=== PATIENT | male | born 1985 | race African-American/Black ===

== ENCOUNTER 2017-01-05 21:25 | Emergency (ER) | payer SELFPAY ==
[2017-01-05 21:44] VITALS: BP 156/81; PULSE 94; TEMP 102.1; BMI 30.8
[2017-01-05] MEDS ORDERED: IBUPROFEN 400 MG TABLET (FP) PO ONE ×2 (21:47→21:50)
--- NOTE | 2017-01-05 21:55 | PDOC ---
History of Present Illness - General Chief Complaint: Cold Symptoms Stated Complaint: FEVER, FATIGUE Time Seen by Provider: 01/05/17 21:47 History Source: Patient Exam Limitations: No Limitations - History of Present Illness Initial Comments: 01/05/17 21:52 31 yr male no medial history with c/o fever for 2 days cough sore throat. no abd pain neg nvd neg urinary complaints. neg neck pain . Pt denies recent travel no sick contacts. Past History - Past Medical History Allergies/Adverse Reactions: Allergies Allergy/AdvReac Type Severity Reaction Status Date / Time No Known Allergies Allergy Verified 01/05/17 21:41 Home Medications: Ambulatory Orders Guaifenesin [Mucinex] 600 mg PO BID PRN #10 tab.er.12h 01/05/17 Ibuprofen 800 mg PO TID PRN #21 tablet 01/05/17 Other medical history: Pt denies - Immunization History Td Vaccination: Yes Immunization Up to Date: Yes - Psycho/Social/Smoking Cessation Hx Anxiety: No Suicidal Ideation: No Smoking Status: Yes Smoking History: Current some day smoker Number of Cigarettes Smoked Daily: 10 Information on smoking cessation initiated: No 'Breaking Loose' booklet given: 06/12/13 Hx Alcohol Use: No Drug/Substance Use Hx: No Substance Use Type: None Hx Substance Use Treatment: No Respiratory Specific PMHX - Complaint Specific PMHX Angina: No Bronchitis: No Pneumonia: No Pulmonary Embolus: No TB (Tuberculosis): No Review of Systems - Review of Systems Able to Perform ROS?: Yes Is the patient limited Andorran proficient: No Constitutional: Yes: Symptoms Reported, Fever HEENTM: Yes: Symptoms Reported, See HPI, Throat Pain Respiratory: Yes: Cough *Physical Exam - Vital Signs Last Vital Signs Temp Pulse Resp BP Pulse Ox 102.1 F H 94 H 20 156/81 99 01/05/17 21:42 01/05/17 21:42 01/05/17 21:42 01/05/17 21:42 01/05/17 21:42 - Physical Exam General Appearance: Yes: Nourished, Appropriately Dressed HEENT: positive: EOMI, CECE, Normal Voice, Muffled/Hoarse voice (slighlty muffled voice ) Neck: positive: Supple, Other (FROM no pain or tenderness). negative: Tender, Rigid, Rigidity, Tender lateral, Tender midline Respiratory/Chest: positive: Lungs Clear, Normal Breath Sounds. negative: Chest Tender Cardiovascular: positive: Regular Rhythm, Regular Rate Gastrointestinal/Abdominal: positive: Normal Bowel Sounds, Soft Musculoskeletal: positive: Normal Inspection Extremity: positive: Normal Capillary Refill, Normal Inspection, Normal Range of Motion Integumentary: positive: Normal Color, Dry, Warm Neurologic: positive: jacquard fixer II-XII NML intact, Fully Oriented, Alert, Normal Mood/ Affect Medical Decision Making - Medical Decision Making 01/05/17 21:54 cc: fever 2 days sore theroat cough non toxic neg neck pain , pt has sinus congestion, tender to sinuses will give ibuprofen 800mg now check for strep 01/05/17 22:20 *DC/Admit/Observation/Transfer Diagnosis at time of Disposition: Upper respiratory tract infection Qualifiers: URI type: unspecified URI Qualified Code(s): J06.9 - Acute upper respiratory infection, unspecified - Discharge Dispostion Disposition: HOME Condition at time of disposition: Good - Prescriptions Prescriptions: Ibuprofen 800 mg PO TID PRN #21 tablet PRN Reason: Fever Or Pain Guaifenesin [Mucinex] 600 mg PO BID PRN #10 tab.er.12h PRN Reason: Cough - Patient Instructions Printed Discharge Instructions: DI for Viral Upper Respiratory Infection -- Adult Additional Instructions: drink pleanty of fluids tea with honey and lemon take ibuprofen 800mg every 6hrs for fever or pain as needed take mucinex for cough and mucous production (prescription sent to pharmacy return to ER for any worsening symptoms
== END 2017-01-05 22:26 | disposition home or self-care (01) ==
LOC: JERFT 21:25
DX: J06.9 Acute upper respiratory infection, unspecified (principal); F17.210 Nicotine dependence, cigarettes, uncomplicated
CPT/HCPCS: 87070; 87077; 87430; 99281-25

== ENCOUNTER 2017-10-15 01:40 | Emergency (ER) | payer SELFPAY ==
[2017-10-15 02:30] VITALS: BP 133/77; PULSE 64; TEMP 97.7; BMI 29.3
--- NOTE | 2017-10-15 03:22 | PDOC ---
History of Present Illness - General Chief Complaint: Toothache Stated Complaint: TOOTHACHE - History of Present Illness Initial Comments: Patient is a 32 year old male, with no pmh, who presents to the emergency department complaining of L sided tooth and jaw pain beginning around 3PM yesterday. Pt noted pain in early afternoon yesterday, primarily in L lower jaw. States that pain has been constant, sharp with mild radiation to upper neck. Pt denies any bleeding, purulent drainage, dysphagia, swelling or rash in the area. Pt with no recent dental procedures or trauma to oropharynx or jaw. Pt has not seen his general dentist in multiple years. No prior hx of dental abscesses. No sick contacts, recent travel or diet changes. patient denies chest pain, shortness of breath, headache or dizziness. Denies fever, chills, nausea, vomiting, diarrhea and constipation. Denies dysuria, frequency, urgency and hematuria. Allergies: None Past surgical history: None Social History: Current smoker, 1/2 ppd; denies alcohol, drug use PMD: Dr. Jake Marks 10/15/17 03:08 Past History - Past Medical History Allergies/Adverse Reactions: Allergies Allergy/AdvReac Type Severity Reaction Status Date / Time No Known Allergies Allergy Verified 01/05/17 21:41 Home Medications: Ambulatory Orders Guaifenesin [Mucinex] 600 mg PO BID PRN #10 tab.er.12h 01/05/17 Ibuprofen 800 mg PO TID PRN #21 tablet 01/05/17 Azithromycin [Zithromax -] 250 mg PO UTDICT #6 tab 01/08/17 Ibuprofen [Motrin -] 600 mg PO Q4H #20 tablet 10/15/17 Penicillin V Potassium [Pen Vee K -] 500 mg PO TID #21 tablet 10/15/17 COPD: No - Immunization History Td Vaccination: Yes Immunization Up to Date: Yes - Suicide/Smoking/Psychosocial Hx Smoking Status: Yes Smoking History: Never smoked Have you smoked in the past 12 months: No Number of Cigarettes Smoked Daily: 10 Information on smoking cessation initiated: No 'Breaking Loose' booklet given: 06/12/13 Hx Alcohol Use: No Drug/Substance Use Hx: No Substance Use Type: None Hx Substance Use Treatment: No Review of Systems - Review of Systems Comments:: GENERAL/CONSTITUTIONAL: No fever or chills. No weakness. HEAD, EYES, EARS, NOSE AND THROAT: + L lower jaw pain. No change in vision. No ear pain or discharge. No sore throat. CARDIOVASCULAR: No chest pain or shortness of breath RESPIRATORY: No cough, wheezing, or hemoptysis. GASTROINTESTINAL: No nausea, vomiting, diarrhea or constipation. GENITOURINARY: No dysuria, frequency, or change in urination. MUSCULOSKELETAL: No joint or muscle swelling or pain. No neck or back pain. SKIN: No rash NEUROLOGIC: No headache, vertigo, loss of consciousness, or change in strength/ sensation. ENDOCRINE: No increased thirst. No abnormal weight change HEMATOLOGIC/LYMPHATIC: No anemia, easy bleeding, or history of blood clots. ALLERGIC/IMMUNOLOGIC: No hives or skin allergy. 10/15/17 03:08 *Physical Exam - Vital Signs Last Vital Signs Temp Pulse Resp BP Pulse Ox 97.7 F 64 18 133/77 95 10/15/17 02:25 10/15/17 02:25 10/15/17 02:25 10/15/17 02:25 10/15/17 02:25 - Physical Exam Comments: GENERAL: Young man, Awake, alert, and fully oriented, in no acute distress HEAD: No signs of trauma, normocephalic, atraumatic EYES: PERRLA, EOMI, sclera anicteric, conjunctiva clear ENT: Mild edema in pretonsilar buccal tissue on L side on oropharynx inspection. No other oropharyngeal lesions, erythema or purulent drainage noted. Auricles normal inspection, hearing grossly normal, nares patent, oropharynx clear without exudates. Moist mucosa NECK: Normal ROM, supple, no lymphadenopathy, JVD, or masses LUNGS: No distress, speaks full sentences, clear to auscultation bilaterally HEART: Regular rate and rhythm, normal S1 and S2, no murmurs, rubs or gallops, peripheral pulses normal and equal bilaterally. ABDOMEN: Soft, nontender, normoactive bowel sounds. No guarding, no rebound. No masses EXTREMITIES : Normal inspection, Normal range of motion, no edema. No clubbing or cyanosis. 10/15/17 03:08 Medical Decision Making - Medical Decision Making Patient is a 32 year old male, with no pmh, who presents to the emergency department complaining of L sided tooth and jaw pain beginning around 3PM yesterday. On exam, pt with no very mild oropharyngeal swelling in L buccal mucosa. Will discharge on 7 day course of Penicillin VK, motrin for pain control and f/u with PMD and general dentist. Pt VSS, pain improved. 10/15/17 03:39 *DC/Admit/Observation/Transfer Diagnosis at time of Disposition: Tooth pain - Discharge Dispostion Disposition: HOME Condition at time of disposition: Good Decision to Admit order: No - Prescriptions Prescriptions: Ibuprofen [Motrin -] 600 mg PO Q4H #20 tablet Penicillin V Potassium [Pen Vee K -] 500 mg PO TID #21 tablet - Referrals Referrals: Jake Marks MD [Staff Physician] - - Patient Instructions Printed Discharge Instructions: DI for Dental Pain Additional Instructions: During your visit to the [facility] ED, you were evaluated for tooth pain. You are being discharged home with outpatient follow-up with your primary care provider and primary dentist. You are being discharged with motrin for pain control and antibiotics. Please take motrin 600mg every four hours if you experience fevers or aches until your symptoms resolve. You are being provided with a prescription for Penicillin VK 500mg. Please take one tablet by mouth every 8 hours. If you experience any of the following symptoms, please return to the ED: - Persistent fevers/chills >3 days - Worsening pain in your mouth or jaw - Worsening swelling, rash or drainage from the site - Any new or concerning symptoms - Post Discharge Activity
[2017-10-15] MEDS ORDERED: IBUPROFEN 600 MG TABLET (FP) PO ONE ×2 (03:29→03:34)
--- NOTE | 2017-10-15 04:15 | PDOC ---
Attending Attestation - HPI HPI: 10/15/17 04:19 The patient is a 32 year old male with no significant past medical history who presents to the ED with toothache since yesterday afternoon. He complains of constant sharp pain in his left lower jaw with radiation to his neck. He denies any recent dental procedures or trauma. He denies any associated fevers or chills. - Medical Decision Making 10/15/17 04:19 Documentation prepared by Mariana Haywood, acting as medical lab technician for Mekhi Mcrae DO. <Mariana Haywood - Last Filed: 10/15/17 04:19> - Resident Resident Name: Prince Khan - ED Attending Attestation I have performed the following: I have examined & evaluated the patient, The case was reviewed & discussed with the resident, I agree w/resident's findings & plan, Exceptions are as noted - Physicial Exam PE: 11/01/17 19:21 Physical Exam General Appearance: Yes: Appropriately Dressed. No: Apparent Distress, Intoxicated HEENT: positive: EOMI, CECE, Normal ENT Inspection, Normal Voice, TMs Normal, Pharynx Normal. negative: Pale Conjunctivae, Photophobia, Scleral Icterus (R), Scleral Icterus (L) Neck: positive: Trachea midline, Normal Thyroid, Supple. negative: Tender, Rigid, Carotid bruit, Stridor, Lymphadenopathy (R), Lymphadenopathy (L), Thyromegaly Respiratory/Chest: positive: Lungs Clear, Normal Breath Sounds. negative: Chest Tender, Respiratory Distress, Accessory Muscle Use, Labored Respiration, RES, Crackles, Rales, Rhonchi, Stridor, Wheezing, Dullness Cardiovascular: positive: Regular Rhythm, Regular Rate, S1, S2. negative: Edema , JVD, Murmur, Bradycardia, Tachycardia Vascular Pulses: Dorsalis-Pedis (R): 2+, Doralis-Pedis (L): 2+ Gastrointestinal/Abdominal: positive: Normal Bowel Sounds, Flat, Soft. negative : Tender, Organomegaly, Pulsatile Mass, Increased Bowel Sounds, Decreased BS, Distended, Guarding, Rebound, Hernia, Hepatomegaly, Spleenomegaly Lymphatic: negative: Adenopathy, Tenderness Musculoskeletal: positive: Normal Inspection. negative: CVA Tenderness, Decreased Range of Motion Extremity: positive: Normal Capillary Refill, Normal Inspection, Normal Range of Motion, Pelvis Stable. negative: Tender, Pedal Edema, Swelling, Erythema Integumentary: positive: Normal Color, Dry, Warm. negative: Cyanotic, Erythema , Jaundice, Rash Neurologic: positive: site leasing agent II-XII NML intact, Fully Oriented, Alert, Normal Mood/ Affect, Motor Strength 5/5. negative: EOM Palsy, Facial Droop, Sensory Deficit <Mekhi Mcrae - Last Filed: 11/01/17 19:21>
== END 2017-10-15 03:54 | disposition home or self-care (01) ==
LOC: JER 01:40
DX: K08.89 Other specified disorders of teeth and supporting structures (principal); F17.210 Nicotine dependence, cigarettes, uncomplicated
CPT/HCPCS: 99281-25

== ENCOUNTER 2018-11-24 02:34 | Emergency (ER) | payer BC, OTHER ==
[2018-11-24 03:23] VITALS: PULSE 82; TEMP 98.3; BMI 30.6
--- NOTE | 2018-11-24 04:30 | PDOC ---
Attending Attestation - Resident Resident Name: Christopher Hartman - ED Attending Attestation I have performed the following: I have examined & evaluated the patient, The case was reviewed & discussed with the resident, I agree w/resident's findings & plan - HPI HPI: 11/24/18 04:59 33-year-old male with blood and pain to the left ear with no recollection of trauma. - Physicial Exam PE: 11/24/18 04:59 agree with resident exam - Medical Decision Making 11/24/18 05:00 33-year-old male with blood and pain to the left ear Exam consistent with a small abrasion in the external canal Plan for localized wound care and DC home
--- NOTE | 2018-11-24 04:45 | PDOC ---
History of Present Illness - General Chief Complaint: Ear Problem Stated Complaint: BLOOD COMMING OUT OF EAR, HEADACHE Time Seen by Provider: 11/24/18 04:28 - History of Present Illness Initial Comments: The pt is a 33M w/ no reported PMH who presents for evaluation of approximately 1 hour of left ear bleeding which has since resolved. He endorses cotton swab usage to clean his ears. He denies any other complaints, pain, or concerns. He has never had this happen before. Denies trauma, fall, fevers/chills, ear pain, recent/recurrent ear infection. 11/24/18 04:34 Past History - Past Medical History Allergies/Adverse Reactions: Allergies Allergy/AdvReac Type Severity Reaction Status Date / Time No Known Allergies Allergy Verified 11/24/18 03:04 Home Medications: Ambulatory Orders NK [No Known Home Medication] 11/24/18 COPD: No - Immunization History Td Vaccination: Yes Immunization Up to Date: Yes - Suicide/Smoking/Psychosocial Hx Smoking Status: Yes Smoking History: Current every day smoker Have you smoked in the past 12 months: Yes Number of Cigarettes Smoked Daily: 10 Information on smoking cessation initiated: No 'Breaking Loose' booklet given: 06/12/13 Hx Alcohol Use: No Drug/Substance Use Hx: No Substance Use Type: None Hx Substance Use Treatment: No Review of Systems - Review of Systems Able to Perform ROS?: Yes Comments:: GENERAL/CONSTITUTIONAL: No fever or chills. No weakness HEAD, EYES, EARS, NOSE AND THROAT: No change in vision. No ear pain or change in hearing. No sore throat CARDIOVASCULAR: No chest pain or shortness of breath RESPIRATORY: Denies cough, hemoptysis GASTROINTESTINAL: No nausea, vomiting, diarrhea or constipation GENITOURINARY: No dysuria, frequency, or change in urination MUSCULOSKELETAL: No joint or muscle swelling or pain. No neck or back pain SKIN: No rash NEUROLOGIC: No headache, vertigo, loss of consciousness, or change in strength/ sensation ENDOCRINE: No increased thirst. No abnormal weight change HEMATOLOGIC/LYMPHATIC: No anemia, easy bleeding, or history of blood clots ALLERGIC/IMMUNOLOGIC: No hives or skin allergy Is the patient limited Grenadian proficient: No *Physical Exam - Vital Signs Last Vital Signs Temp Pulse Resp BP Pulse Ox 98.3 F 82 14 156/106 H 100 11/24/18 03:01 11/24/18 03:01 11/24/18 03:01 11/24/18 03:01 11/24/18 03:01 - Physical Exam Comments: GENERAL: Awake, alert, and oriented to person/place/time, in no acute distress HEAD: No signs of trauma, normocephalic, atraumatic EYES: PERRLA, EOMI, sclera anicteric, conjunctiva clear ENT: Hearing grossly normal, R TM and EAM w/o hemorrhage, inflammation; L TM flat w/o inflammation; L EAM w/ small amount of blood w/o active hemorrhage; nares patent, oropharynx clear without exudates. Moist mucosa LUNGS: No distress, speaks in full sentences, clear to auscultation bilaterally HEART: Regular rate and rhythm, normal S1 and S2, no murmurs appreciated ABDOMEN: Soft, nontender, normoactive bowel sounds. No guarding, no rebound EXTREMITIES: Normal inspection, Normal range of motion, no edema. No clubbing or cyanosis NEUROLOGICAL: Cranial nerves II through XII grossly intact. Normal speech, normal gait, no focal sensorimotor deficits SKIN: Warm, Dry Medical Decision Making - Medical Decision Making The pt is a 33M w/ no reported PMH who presents for evaluation of approximately 1 hour of left ear bleeding which has since resolved. EAM cleaned and remained hemostatic Pt given discharge instruction, cautioned again using cotton swabs for cleaning his ears, return precautions, and follow up Pt in agreement and verbalized understanding Dispo: home *DC/Admit/Observation/Transfer Diagnosis at time of Disposition: Bleeding from left ear - Discharge Dispostion Disposition: HOME Condition at time of disposition: Stable Decision to Admit order: No - Referrals Referrals: [facility] [place] [facility] [place] [Provider Group] - Patient Instructions Printed Discharge Instructions: DI for Ear Drainage Additional Instructions: You were seen in the Emergency Department for evaluation of ear bleeding. It was likely due to a scratch in your ear. Review the handout provided at discharge and refrain from using cotton swabs to clean your ears. Follow up with your primary care provider. Return to the Emergency Department if you develop fevers/chills, chest pain, trouble breathing, lightheadedness/dizziness , persistent bleeding, change in hearing, worsening symptoms, or any new/ concerning symptoms. - Post Discharge Activity
[2018-11-24 04:49] VITALS: BP 137/83
== END 2018-11-24 05:05 | disposition home or self-care (01) ==
LOC: JER 02:34
DX: H92.22 Otorrhagia, left ear (principal); F17.210 Nicotine dependence, cigarettes, uncomplicated
CPT/HCPCS: 99281-25

== ENCOUNTER 2019-01-12 22:55 | Emergency (ER) | payer OTHER ==
[2019-01-12 23:05] VITALS: BMI 30.6
--- NOTE | 2019-01-12 23:36 | PDOC ---
History of Present Illness - General Chief Complaint: Hemoptysis Stated Complaint: COUGH/SOB Time Seen by Provider: 01/12/19 23:23 History Source: Patient Exam Limitations: No Limitations - History of Present Illness Initial Comments: Pt is a 33 yo M, with no significant PMH, who is presenting with 1 episode of bloody sputum today. Pt states he has had symptoms of URI (dry nasal congestion , dry cough) x1 week, with fever during the first few days which resolved with OTC advil PM. Pt states he then had productive sputum over the past few days, which seemed to be resolving, however he had 1 episode shortly before presentation in which he noticed a small amount of blood mixed into the sputum, so presented to the ER. Pt denies any fevers/chills, headache, vision changes, syncope, chest pain, palpitations, SOB, nausea/vomiting, abdominal pain, urinary symptoms, diarrhea/constipation, or leg swelling. Allergies: NKDA PCP: Robb Makrs Social: Pt denies any cigarette, alcohol, or drug use. Pt quit smoking cigarettes and THC 6 months ago. Pt denies any recent travel or sick contacts. Surgical: no relevant history. Family: no relevant history. 01/13/19 00:27 Past History - Travel Traveled outside of the country in the last 30 days: No Close contact w/someone who was outside of country & ill: No - Past Medical History Allergies/Adverse Reactions: Allergies Allergy/AdvReac Type Severity Reaction Status Date / Time No Known Allergies Allergy Verified 01/12/19 23:05 Home Medications: Ambulatory Orders NK [No Known Home Medication] 11/24/18 COPD: No - Immunization History Td Vaccination: Yes Immunization Up to Date: Yes - Suicide/Smoking/Psychosocial Hx Smoking Status: Yes Smoking History: Former smoker Have you smoked in the past 12 months: No Number of Cigarettes Smoked Daily: 10 Information on smoking cessation initiated: No 'Breaking Loose' booklet given: 06/12/13 Hx Alcohol Use: No Drug/Substance Use Hx: No Substance Use Type: None Hx Substance Use Treatment: No Review of Systems - Review of Systems Able to Perform ROS?: Yes Is the patient limited Irish proficient: No Constitutional: Yes: Malaise, Weight Stable. No: Chills, Diaphoresis, Fever, Loss of Appetite, Weakness HEENTM: Yes: Nose Congestion. No: Blurred Vision, Double Vision, Nose Bleeding , Throat Pain, Throat Swelling, Difficulty Swallowing Respiratory: Yes: See HPI, Cough, Hemoptysis. No: Orthopnea, Shortness of Breath, Productive cough Cardiac (ROS): No: Chest Pain, Edema, Irregular Heart Rate, Lightheadedness, Palpitations, Syncope, Chest Tightness ABD/GI: No: Constipated, Diarrhea, Nausea, Poor Appetite, Poor Fluid Intake, Vomiting : No: Burning, Dysuria, Frequency, Pain, Urgency Musculoskeletal: No: Back Pain, Joint Pain Integumentary: No: Rash Neurological: No: Headache, Numbness, Paresthesia, Weakness, Unsteady Gait, Dizziness Psychiatric: No: Sleep Pattern Change, Change in Appetite Endocrine: No: Increased Urine, Change in Weight Hematologic/Lymphatic: No: Anemia, Blood Clots, Easy Bleeding, Easy Bruising All Other Systems: Reviewed and Negative *Physical Exam - Vital Signs Last Vital Signs Temp Pulse Resp BP Pulse Ox 98.0 F 74 15 164/90 100 01/12/19 23:01 01/12/19 23:01 01/12/19 23:01 01/12/19 23:01 01/12/19 23:01 - Physical Exam Comments: Vitals stable, pt afebrile. Pt in NAD, overweight body habitus. Pt alert and oriented x3. heat curer generally intact, muscular strength and sensation intact. No midline spinal tenderness, step-offs, or crepitus. Head normocephalic, atraumatic. Eyes PERRLA, EOMI. Oropharynx without erythema or exudates, no LAD b/l. No nasal congestion, hearing intact. Clear heart sounds, S1/S2, no JVD, b/l pedal edema, or heart murmur. Clear lung sounds, no respiratory distress, wheezes, crackles, or accessory muscle use. No abdominal or CVA tenderness to palpation, no rebound, no guarding. Abdomen soft, non-distended, and with normoactive bowel sounds. Skin without jaundice or rash. 01/13/19 00:30 Medical Decision Making - Medical Decision Making Pt was seen at bedside, also will be seen by attending Dr. Harris. Pt presenting with complaints of blood mixed into sputum, after persistent cough over the past week. Likely bronchitis and inflammation 2/2 URI. Will evaluate with chest x-ray for pneumonia, but afebrile and no focal consolidation auscultated on exam. Will continue to reassess pt and monitor for symptomatic improvement. ECG: NSR, intervals WNL (HR 76, AR 152, QRS 88, QTc 396). TWIs in III. No prior ECG for comparison. 01/13/19 00:32 x-ray with no acute pathology or focal infiltrates (read in ER with Dr Harris) Pt safe to discharge home with PCP f/u. 01/13/19 01:24 *DC/Admit/Observation/Transfer Diagnosis at time of Disposition: Hemoptysis, unspecified URI (upper respiratory infection) Qualifiers: URI type: unspecified URI Qualified Code(s): J06.9 - Acute upper respiratory infection, unspecified - Discharge Dispostion Disposition: HOME Condition at time of disposition: Good Decision to Admit order: No - Referrals Referrals: Robb Marks MD [Primary Care Provider] - - Patient Instructions Printed Discharge Instructions: DI for Hemoptysis, DI for Viral Upper Respiratory Infection -- Adult Additional Instructions: You were seen in the ER today for blood in your sputum. The results of your imaging today was normal. Please follow-up with your primary care doctor within 1-2 days to discuss your visit and make sure your symptoms have improved. Please return to the ER if you have any worsening pain, development of fevers or chills, loss of consciousness, inability to tolerate food or fluids, or any other concerns. - Post Discharge Activity
[2019-01-13 00:53] VITALS: BP 137/86; PULSE 62; TEMP 98.2
--- NOTE | 2019-01-13 01:37 | PDOC ---
Documentation entered by Anisa Muñoz SCRIBE, acting as scribe for Sharon Harris MD. Sharon Harris MD: This documentation has been prepared by the scribe, Anisa Muñoz SCRIBE, under my direction and personally reviewed by me in its entirety. I confirm that the documentation accurately reflects all work, treatment, procedures, and medical decision making performed by me. Attending Attestation - Resident Resident Name: MariaaJeannette - HPI HPI: 01/13/19 00:05 The patient is a 33-year-old male with no reported past medical history presents to the emergency department after 2 episodes of hemoptysis. The patient reports hes been having 2 weeks of fever, which resolved in 2 days with Tylenol, congestion, dry cough which progressed into a productive cough. The patient reports enroute to the ER, the patient experienced chest pain, denies chest pain currently. Denies sick contact or recent travel. - Physicial Exam PE: 01/13/19 01:00 GENERAL: Awake, alert, and fully oriented, in no acute distress LUNGS: Breath sounds equal, clear to auscultation bilaterally. No wheezes, and no crackles HEART: Regular rate and rhythm, normal S1 and S2, no murmurs, rubs or gallops NEUROLOGICAL: Cranial nerves II through XII grossly intact. Normal speech, normal gait. - Medical Decision Making 01/13/19 01:36 pt presents to the ED complaining of a single episode of blood streaked sputum that occurred after a prolonged coughing spell. Currently denies complaints. CXR checked to evaluate for PNA and is negative. Will discharge home with instructions to return to the Ed for worsening symptoms.
--- NOTE | 2019-01-17 09:33 | EKG ---
Test Reason : Blood Pressure : / mmHG Vent. Rate : 076 BPM Atrial Rate : 076 BPM P-R Int : 152 ms QRS Dur : 088 ms QT Int : 352 ms P-R-T Axes : 038 065 -01 degrees QTc Int : 396 ms NORMAL SINUS RHYTHM ABNORMAL QRS-T ANGLE, CONSIDER PRIMARY T WAVE ABNORMALITY ABNORMAL ECG NO PREVIOUS ECGS AVAILABLE Confirmed by Ashwin Upton MD ([id number]) on 01/17/2019 9:32:54 AM Referred By: Confirmed By:Ashwin Upton MD
== END 2019-01-13 01:38 | disposition home or self-care (01) ==
LOC: JER 22:55
DX: J06.9 Acute upper respiratory infection, unspecified (principal); R04.2 Hemoptysis; Z87.891 Personal history of nicotine dependence
CPT/HCPCS: 71046-TC-FY; 93005; 93010; 99283-25

== ENCOUNTER 2019-05-29 13:34 | Emergency (ER) | payer OTHER ==
[2019-05-29 13:42] VITALS: BP 146/89; PULSE 78; TEMP 98; BMI 28.7
--- NOTE | 2019-05-29 13:44 | PDOC ---
Rapid Medical Evaluation Medical Evaluation: Allergies Allergy/AdvReac Type Severity Reaction Status Date / Time No Known Allergies Allergy Verified 01/12/19 23:05 I have performed a brief in-person evaluation of this patient. The patient presents with a chief complaint of: R eye irritation and FB sensation in eye from this AM; +eye burning sensation; denies trauma, fever, URI sxs, discharge Pertinent physical exam findings: +R eye injected, tearing; ?tiny piece of hair below pupil I have ordered the following: patient sent to eye irrigation station to irrigate eye The patient will proceed to the ED for further evaluation. 05/29/19 13:39
[2019-05-29] MEDS ORDERED: FLUORESCEIN NA 1 EA STRIP ONE (15:55)
[2019-05-29] MEDS ORDERED: TETRACAINE 0.5% OPHTH SOLN 2 ML BOTTLE ONE (15:55)
--- NOTE | 2019-05-29 15:56 | PDOC ---
History of Present Illness - General Chief Complaint: Eye Problem Stated Complaint: RT PINK EYE Time Seen by Provider: 05/29/19 13:39 History Source: Patient Exam Limitations: No Limitations Past History - Travel Traveled outside of the country in the last 30 days: No Close contact w/someone who was outside of country & ill: No - Past Medical History Allergies/Adverse Reactions: Allergies Allergy/AdvReac Type Severity Reaction Status Date / Time No Known Allergies Allergy Verified 05/29/19 13:42 Home Medications: Ambulatory Orders Erythromycin 0.5% Eye Ointment [Erythromycin 0.5% Eye Ointment -] 1 applic OD TID #1 tube 05/29/19 COPD: No - Immunization History Td Vaccination: Yes Immunization Up to Date: Yes - Psycho Social/Smoking Cessation Hx Smoking Status: Yes Smoking History: Never smoked Have you smoked in the past 12 months: No Number of Cigarettes Smoked Daily: 10 'Breaking Loose' booklet given: 06/12/13 Hx Alcohol Use: No Drug/Substance Use Hx: No Substance Use Type: None Hx Substance Use Treatment: No Review of Systems - Review of Systems Able to Perform ROS?: Yes Comments:: 05/29/19 16:03 CONSTITUTIONAL: Absent: fever, chills, diaphoresis, generalized weakness, malaise, loss of appetite HEENT: Present: Right eye pain/discharge absent: rhinorrhea, nasal congestion, throat pain, throat swelling, difficulty swallowing, mouth swelling, ear pain, eye pain , visual Changes MUSCULOSKELETAL: Absent: myalgia, arthralgia, joint swelling SKIN: Absent: rash, itching, pallor NEUROLOGIC: Absent: headache, focal weakness or paresthesias, dizziness, unsteady gait, seizure, mental status changes, bladder or bowel incontinence PSYCHIATRIC: Absent: anxiety, depression, suicidal or homicidal ideation, hallucinations. Is the patient limited Japanese proficient: No *Physical Exam - Vital Signs Last Vital Signs Temp Pulse Resp BP Pulse Ox 98.0 F 78 16 146/89 98 05/29/19 13:37 05/29/19 13:37 05/29/19 13:37 05/29/19 13:37 05/29/19 13:37 - Physical Exam 05/29/19 16:03 GENERAL: The patient is awake, alert, and fully oriented, in no acute distress. HEAD: Normal with no signs of trauma. EYES: Pupils equal, round and reactive to light, extraocular movements intact, sclera anicteric, L conjunctiva clear. R conjunctiva is pink with yellow discharge. Small area of uptake from the fluorescein stain dye. HEENT: No nasal congestion or rhinorrhea. No sinus Tenderness. Mucous membranes are moist. No tonsillar erythema, exudate or edema. Uvula is midline. No TM bulging , dullness or erythema. NECK: Neck is supple. No adenopathy. No meningismus. No stridor. EXTREMITIES: Normal range of motion, no edema. NEUROLOGICAL: Normal speech, normal gait. PSYCH: Normal mood, normal affect. SKIN: Warm, Dry, normal turgor, no rashes or lesions noted. Medical Decision Making - Medical Decision Making 05/29/19 16:04 Patient is a 33-year-old male with no past medical history who presents to the ER today for right eye pain and discharge for two days. He states his eye is itchy and he feels like there is something in it. He also notes when he woke up this morning his eye was stuck together. Denies fevers, chills, visual changes. A/P: Conjunctivitis/corneal abrasion On exam patient with small uptake of fluorescein dye at the 6 o'clock position insistent with a corneal abrasion Conjunctiva is red with discharge also consistent with conjunctivitis. Will treat with erythromycin ointment. Patient to follow-up with ophthalmology. Discharge home I discussed the physical exam findings, ancillary test results and final diagnoses with the patient. I answered all of the patient's questions. The patient was satisfied with the care received and felt comfortable with the discharge plan and treatment plan. The Patient agrees to follow up with the primary care physician/specialist within 24-72 hours. Return precautions were given. Discharge - Discharge Information Problems reviewed: Yes Clinical Impression/Diagnosis: Conjunctivitis Qualifiers: Conjunctivitis type: acute Acute conjunctivitis type: unspecified Laterality: right Qualified Code(s): H10.31 - Unspecified acute conjunctivitis, right eye Corneal abrasion Qualifiers: Encounter type: initial encounter Laterality: right Qualified Code(s): S05.01XA - Injury of conjunctiva and corneal abrasion without foreign body, right eye, initial encounter Condition: Stable Disposition: HOME - Admission No - Follow up/Referral Referrals: Selina,Robb N., MD [Primary Care Provider] - - Patient Discharge Instructions Patient Printed Discharge Instructions: DI for Conjunctivitis, DI for Corneal Abrasion Additional Instructions: You have conjunctivitis. This is an eye infection. You also have a corneal abrasion. This is a scratch on the eye. Please use erythromycin ointment twice a day to the affected eye for one week. Please wash her hands frequently Do not wear contact lenses until your infection clears Follow up with ophthalmology if her symptoms do not improve within a week. Return to the ER for visual changes, blurry vision, or any new or worsening symptoms. - Post Discharge Activity Work/Back to School Note: Back to School
== END 2019-05-29 16:16 | disposition home or self-care (01) ==
LOC: JERFT 13:34
PROC: 3E1CX8Z Irrigation of Eye using Irrigating Substance (ICD-10-PCS; principal; 2019-05-29)
DX: H10.31 Unspecified acute conjunctivitis, right eye (principal); S05.01XA Injury of conjunctiva and corneal abrasion without foreign body, right eye, initial encounter; T15.81XA Foreign body in other and multiple parts of external eye, right eye, initial encounter; X58.XXXA Exposure to other specified factors, initial encounter; Y93.89 Activity, other specified; Y92.89 Other specified places as the place of occurrence of the external cause; Y99.8 Other external cause status
CPT/HCPCS: 65220; 99281-25

== ENCOUNTER 2019-08-02 19:45 | Emergency (ER) | payer OTHER ==
[2019-08-02 20:16] VITALS: BP 146/97; PULSE 73; TEMP 98.3; BMI 29.9
--- NOTE | 2019-08-02 21:44 | PDOC ---
History of Present Illness - General Chief Complaint: Cold Symptoms Stated Complaint: SICK Time Seen by Provider: 08/02/19 21:42 History Source: Patient - History of Present Illness Initial Comments: 08/02/19 21:46 Chief complaint: Cold symptoms Patient is a healthy 34-year-old male who states that he has had a drip down the back into his throat is causing him to cough. He does not feel sick, does not have fever. He is in a respiratory therapy program in clinical[facility] where they wanted him evaluated for coronavirus. GENERAL/CONSTITUTIONAL: No fever, weakness. dizziness HEAD, EYES, EARS, NOSE AND THROAT: No change in vision. No ear pain or discharge. No sore throat. CARDIOVASCULAR: No chest pain RESPIRATORY: No shortness of breath +cough GASTROINTESTINAL: No pain, nausea, vomiting, diarrhea or constipation GENITOURINARY: No dysuria MUSCULOSKELETAL: No neck or back pain SKIN: No rash NEUROLOGIC: No headache, vertigo, loss of consciousness, or loss of sensation. GENERAL: The patient is awake, alert, and fully oriented, in no acute distress. HEAD: Normal with no signs of trauma. EYES: Pupils equal, round and reactive to light, sclera anicteric, conjunctiva clear. ENT: pharynx: no erythema, no exudate, uvula midline NECK: supple CHEST: clear, nontender, rr ABD: soft, nontender BACK: no tenderness or signs of injury EXTREMITIES: Normal range of motion, no edema. NEUROLOGICAL: Normal speech, normal gait. SKIN: Warm, Dry Past History - Past Medical History Allergies/Adverse Reactions: Allergies Allergy/AdvReac Type Severity Reaction Status Date / Time No Known Allergies Allergy Verified 08/02/19 20:16 Home Medications: Ambulatory Orders Erythromycin 0.5% Eye Ointment [Erythromycin 0.5% Eye Ointment -] 1 applic OD TID #1 tube 05/29/19 COPD: No - Immunization History Td Vaccination: Yes Immunization Up to Date: Yes - Psycho Social/Smoking Cessation Hx Smoking Status: Yes Smoking History: Never smoked Have you smoked in the past 12 months: No Number of Cigarettes Smoked Daily: 10 Information on smoking cessation initiated: No 'Breaking Loose' booklet given: 06/12/13 Hx Alcohol Use: No Drug/Substance Use Hx: No Substance Use Type: None Hx Substance Use Treatment: No *Physical Exam - Vital Signs Last Vital Signs Temp Pulse Resp BP Pulse Ox 98.3 F 73 16 146/97 100 08/02/19 20:13 08/02/19 20:13 08/02/19 20:13 08/02/19 20:13 08/02/19 20:13 Medical Decision Making - Medical Decision Making 08/02/19 21:47 Patient is a healthy 34-year-old male with possible cold symptoms but mainly postnasal drip. Does not look ill, no fever, no coughing while he is in the ER. Patient given paperwork for his program but cannot give absolute information regarding absence of coronavirus given that there is no testing in patients can have varying degrees of symptoms. Patient will have to follow clinical guidelines of his program given the current situation with respiratory illness. Discussed issues, findings, results, applicable medications and treatments and follow-up. All these were understood and all questions were answered Discharge - Discharge Information Problems reviewed: Yes Clinical Impression/Diagnosis: Post-nasal drip Condition: Stable Disposition: HOME - Admission No - Follow up/Referral Referrals: Robb Marks MD [Primary Care Provider] - - Patient Discharge Instructions Additional Instructions: You can take Claritin or Sudafed for your symptoms. Return to the nearest ER if short of breath, unable to swallow or feeling sicker Follow the guidelines of your clinical site regarding return to clinicals If you have any other questions you can call the Department of Health at [phone] - Post Discharge Activity
== END 2019-08-02 21:48 | disposition home or self-care (01) ==
LOC: JERFT 19:45
DX: R09.82 Postnasal drip (principal)
CPT/HCPCS: 99281-25

== ENCOUNTER 2021-03-06 02:20 | Emergency (ER) | payer BC, OTHER ==
[2021-03-06 02:27] VITALS: BMI 31.2
[2021-03-06] MEDS ORDERED: ACETAMINOPHEN 500 MG TABLET (FP) PO ONE (03:04)
[2021-03-06] MEDS ORDERED: ACETAMINOPHEN 325 MG TABLET (FP) ONE (03:18)
[2021-03-06 03:58] VITALS: BP 132/76; PULSE 89; TEMP 99.2
== END 2021-03-06 03:59 | disposition home or self-care (01) ==
LOC: JER 02:20
DX: J06.9 Acute upper respiratory infection, unspecified (principal)
CPT/HCPCS: 87804; 99284-25; C9803; U0003; U0005